=== PATIENT | male | born 1960 | race Caucasian/White ===

== ENCOUNTER → 2019-09-10 | Day surgery (SDC) | payer MEDICARE ==
[2019-09-05 14:40] VITALS: BMI 30.8
[~2019-09-10] MED LIST: LACTATED RINGERS 1,000 ML IV SCH; LIDOCAINE 1% (10MG/ML) FOR IV START INTRADERMA PRN; LIDOCAINE 1% INJ 10MG/ML (20 ML MDV) ONE; PROPOFOL 10 MG/ML 20 ML VIAL IV ONE
[2019-09-10 07:22] VITALS: TEMP 96.7
[2019-09-10 08:07] VITALS: RESP 17
--- NOTE | 2019-09-10 08:08 | P.PCN ---
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 The last was on weeks ago by . His having symptoms and dysphagia for the last 3-4 days and hence scheduled for repeat EGD with dilation today. PROCEDURE PERFORMED: Esophagogastroduodenoscopy with balloon dilation PREOPERATIVE DIAGNOSIS: History of caustic esophageal stricture/dysphagia IV sedation per anesthesia. PROCEDURE: After informed consent was obtained, the patient was brought into the endoscopy unit. IV sedation was administered by Anesthesia under continuous monitoring. Initially the Olympus GIF-140 video endoscope was inserted into the mouth. Esophagus intubated without any difficulty. It was gradually advanced into the stomach and duodenum and carefully examined. The bulb and the second part of the duodenum appeared normal. The scope at this time was withdrawn to the stomach, adequately insufflated with air, and upon careful examination, mucosa of the antrum, body, cardia and the fundus appeared normal. Small amount of retained food noted in the fundus of the stomach. The scope was then withdrawn into the esophagus. The GE junction was located at 39 cm from the incisors. This was an esophageal stricture noted at 28 cm from the incisors with scarring of the mid esophagus and the proximal esophagus. At this time, b alloon dilation was performed using 15-18 mm TTS balloon in a sequential fashion in the proximal as well as mid esophagus until mucosal oozing was identified. At this time the procedure was terminated and the patient tolerated the procedure well. IMPRESSION: 1. Scarring of the proximal and midesophagus with intermittent esophageal stricture at 28 cm from the incisors status post balloon dilation using 15-18 mm TTS balloon in a sequential fashion as described above 2. Retained food in the stomach suggestive of gastroparesis RECOMMENDATIONS: The findings of this examination were discussed with the patient as well as his family. He will remain on a clear liquid diet for lunch today and soft diet for dinner. He was advised to follow up as needed.
[2019-09-10 08:30] VITALS: BP 115/72; PULSE 60
== END ==
LOC: ORWHC2ENDO 07:13
PROVIDERS: ATTEND Internal Medicine Gastroenterology
DX: K22.2 Esophageal obstruction (principal); F17.210 Nicotine dependence, cigarettes, uncomplicated
CPT/HCPCS: 43249; J2001; J2704; C1726

== ENCOUNTER 2020-09-22 12:10 | Day surgery (SDC) | payer MEDICARE ==
[2020-09-20 09:10] VITALS: BMI 31.5
[~2020-09-22 12:10] MED LIST changes: -LIDOCAINE 1% INJ 10MG/ML (20 ML MDV) ONE; -PROPOFOL 10 MG/ML 20 ML VIAL IV ONE
[2020-09-22 13:13] VITALS: TEMP 98.2
[2020-09-22] MEDS ORDERED: LIDOCAINE 1% INJ 10MG/ML (20 ML MDV) ONE ×2 (13:19)
[2020-09-22] MEDS ORDERED: PROPOFOL 10 MG/ML 20 ML VIAL IV ONE ×2 (13:19)
--- NOTE | 2020-09-22 13:30 | P.PCN ---
Date of Procedure: 09/22/20 Procedure(s) Performed: BRIEF HISTORY: Patient is a 60-year-old, pleasant, white male scheduled for an upper endoscopy with dilation as a part of evaluation of caustic esophageal stricture diagnosed 13 years ago. He has upper endoscopy with dilation in the last one was [address] Mejia.. PROCEDURE PERFORMED: Esophagogastroduodenoscopy with balloon dilation. PREOPERATIVE DIAGNOSIS: History of caustic esophageal stricture/dysphagia. IV sedation per anesthesia. PROCEDURE: After informed consent was obtained, the patient was brought into the endoscopy unit. IV sedation was administered by Anesthesia under continuous monitoring. Initially the Olympus GIF-140 video endoscope was inserted into the mouth. Esophagus intubated without any difficulty. It was gradually advanced into the stomach and duodenum and carefully examined. The bulb and the second part of the duodenum appeared normal. The scope at this time was withdrawn to the stomach, adequately insufflated with air, and upon careful examination, mucosa of the antrum, body, cardia and the fundus appeared normal. The scope was then withdrawn into the esophagus. The GE junction was located at 39 cm from the incisors. It appeared regular with no erythema erosions or ulcerations. In the mid esophagus at 28 cm from the incisors there was a early esophageal stricture with mucosal erythema noted and this was dilated using 15-18 mm TTS balloon for 90 seconds. The proximal esophagus appeared normal and the patient tolerated the procedure well. IMPRESSION: 1. Mid esophageal stricture at 28 cm from the incisors. Erythema of the mucosa status post balloon dilation using 15-18 mm TTS balloon as described above. 2. Small hiatal hernia and irregular GE junction. RECOMMENDATIONS: The findings of this examination were discussed with the patient well as his family. He will remain on a clear liquid diet for lunch today. We'll plan a repeat upper endoscopy with dilation in 2-3 weeks..
[2020-09-22 14:13] VITALS: BP 116/70; PULSE 88; RESP 20
== END 2020-09-22 14:10 | disposition home or self-care (01) ==
LOC: ORWHC2ENDO 12:10
PROVIDERS: ATTEND Internal Medicine Gastroenterology
DX: K22.2 Esophageal obstruction (principal); K44.9 Diaphragmatic hernia without obstruction or gangrene; K21.9 Gastro-esophageal reflux disease without esophagitis; F17.200 Nicotine dependence, unspecified, uncomplicated; Z79.899 Other long term (current) drug therapy
CPT/HCPCS: 43249; J2001; J2704; C1726

== ENCOUNTER 2020-10-06 10:28 | Day surgery (SDC) | payer MEDICARE ==
[2020-10-04 14:00] VITALS: BMI 32.0
[2020-10-06 10:47] VITALS: RESP 16; TEMP 98.1
[2020-10-06] MEDS ORDERED: PROPOFOL 10 MG/ML 20 ML VIAL IV ONE (11:15)
[2020-10-06] MEDS ORDERED: MIDAZOLAM 2 MG/2 ML VIAL ONE (11:15)
[2020-10-06] MEDS ORDERED: LIDOCAINE 1% INJ 10MG/ML (20 ML MDV) ONE (11:15)
[2020-10-06] MEDS ORDERED: fentaNYL (PF) 50 MCG/ML 2 ML AMP ONE (11:15)
--- NOTE | 2020-10-06 11:43 | P.PCN ---
Date of Procedure: 10/06/20 Procedure(s) Performed: BRIEF HISTORY: Patient is a 60-year-old, pleasant, white male scheduled for an upper endoscopy as a part of evaluation of dysphagia to solids. He was diagnosed with esophageal caustic stricture 13 years ago and since then has been having upper endoscopy with dilation every 2 weeks. PROCEDURE PERFORMED: Esophagogastroduodenoscopy with dilation. PREOPERATIVE DIAGNOSIS: History of esophageal stricture. IV sedation per anesthesia. PROCEDURE: After informed consent was obtained, the patient was brought into the endoscopy unit. IV sedation was administered by Anesthesia under continuous monitoring. Initially the Olympus GIF-140 video endoscope was inserted into the mouth. Esophagus intubated without any difficulty. It was gradually advanced into the stomach and duodenum and carefully examined. The bulb and the second part of the duodenum appeared normal. The scope at this time was withdrawn to the stomach, adequately insufflated with air, and upon careful examination, mucosa of the antrum, body, cardia and the fundus appeared normal. The scope was then withdrawn into the esophagus. Small hiatal hernia noted. The GE junction was located at 39 cm from the incisors. The distal esophagus appeared normal. In the midesophagus at 28 cm from the incisors there was esophagus which are identified and proximal to this there was scarring of the mucosa with erythema noted which extended from 20-28 cm from the incisors. At this time using a 15- 17 mm balloon esophagus into was dilated for 60 seconds and some mucosal oozing was identified. Further dilation was not performed. The patient tolerated the procedure well. IMPRESSION: 1. Mid esophageal stricture at 28 cm from the incisors status post balloon dilation using 15-17 mm TTS balloon as described above. 2. Scarring of the mucosa in the mid esophagus with mucosal erythema noted from 20-28 cm from the incisors consistent with previous caustic into the. 3. Small hiatal hernia RECOMMENDATIONS: The findings of this examination were discussed with the patient as well as his family. He was advised to continue with a clear liquid diet today.he will have a repeat upper endoscopy with dilation in 2-3 weeks
[2020-10-06 12:13] VITALS: BP 129/78; PULSE 68
== END 2020-10-06 12:17 | disposition home or self-care (01) ==
LOC: ORWHC2ENDO 10:28
PROVIDERS: ATTEND Internal Medicine Gastroenterology
DX: K22.2 Esophageal obstruction (principal); K44.9 Diaphragmatic hernia without obstruction or gangrene; Z79.891 Long term (current) use of opiate analgesic; Z79.899 Other long term (current) drug therapy; F17.200 Nicotine dependence, unspecified, uncomplicated; K21.9 Gastro-esophageal reflux disease without esophagitis
CPT/HCPCS: 43249; J2250; J2001; J3010; J2704; C1726

== ENCOUNTER 2020-10-22 08:04 | Day surgery (SDC) | payer MEDICARE ==
[2020-10-19 08:46] VITALS: BMI 31.7
[~2020-10-22 08:04] MED LIST changes: -LIDOCAINE 1% (10MG/ML) FOR IV START INTRADERMA PRN
[2020-10-22 08:44] VITALS: RESP 16; TEMP 97.6
[2020-10-22] MEDS ORDERED: LIDOCAINE 1% (10MG/ML) FOR IV START INTRADERMA ONE (08:46)
[2020-10-22] MEDS ORDERED: PROPOFOL 10 MG/ML 20 ML VIAL IV ONE (08:50)
[2020-10-22] MEDS ORDERED: LIDOCAINE 1% INJ 10MG/ML (20 ML MDV) ONE (08:50)
--- NOTE | 2020-10-22 09:02 | P.PCN ---
Date of Procedure: 10/22/20 Procedure(s) Performed: BRIEF HISTORY: Patient is a 60-year-old, pleasant, white male scheduled for an upper endoscopy with dilation. 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 PROCEDURE PERFORMED: Esophagogastroduodenoscopy with dilation. PREOPERATIVE DIAGNOSIS: []. IV sedation per anesthesia. PROCEDURE: After informed consent was obtained, the patient was brought into the endoscopy unit. IV sedation was administered by Anesthesia under continuous monitoring. Initially the Olympus GIF-140 video endoscope was inserted into the mouth. Esophagus intubated without any difficulty. It was gradually advanced into the stomach and duodenum and carefully examined. The bulb and the second part of the duodenum appeared normal. The scope at this time was withdrawn to the stomach, adequately insufflated with air, and upon careful examination, mucosa of the antrum, body, cardia and the fundus appeared normal. The scope was then withdrawn into the esophagus. The GE junction was located at 39 cm from the incisors. Small sliding Hiatal hernia noted. The distal esophagus appeared normal. There was a stricture noted in the mid esophagus at 29 cm from the incisors with proximal mucosal scarring noted. At this time proceeded with balloon dilation using 15-18 mm TTS balloon in a sequential fashion for 90 seconds. Ther rest of the esophagus appeared normal and the patient tolerated the procedure well. IMPRESSION: 1. Mid esophageal stricture at 29 cm from the incisors with proximal scarring of the mucosa status post balloon dilation using 15-18 mm TTS balloon as describ ed above. 2. Small sliding hiatal hernia.. RECOMMENDATIONS: The findings of this examination were discussed with the patient as well as his family. He will continue on a clear liquid diet today. Repeat EGD as needed in 2-3 weeks..
[2020-10-22 09:33] VITALS: BP 130/86; PULSE 62
== END 2020-10-22 09:40 | disposition home or self-care (01) ==
LOC: ORWHC2ENDO 08:04
PROVIDERS: ATTEND Internal Medicine Gastroenterology
DX: K22.2 Esophageal obstruction (principal); K21.9 Gastro-esophageal reflux disease without esophagitis; K44.9 Diaphragmatic hernia without obstruction or gangrene; F17.200 Nicotine dependence, unspecified, uncomplicated; Z79.899 Other long term (current) drug therapy
CPT/HCPCS: 43249; J2001; J2704; C1726

== ENCOUNTER 2020-11-03 09:40 | Day surgery (SDC) | payer MEDICARE ==
[2020-10-29 11:19] VITALS: BMI 31.5
[2020-11-03] MEDS ORDERED: LIDOCAINE 1% (10MG/ML) FOR IV START INTRADERMA PRN (09:53)
[2020-11-03] MEDS ORDERED: LACTATED RINGERS 1,000 ML IV SCH (09:53)
[2020-11-03 09:56] VITALS: RESP 16; TEMP 97.2
[2020-11-03] MEDS ORDERED: PROPOFOL 10 MG/ML 20 ML VIAL IV ONE (10:30)
[2020-11-03] MEDS ORDERED: LIDOCAINE 1% INJ 10MG/ML (20 ML MDV) ONE (10:30)
--- NOTE | 2020-11-03 10:44 | P.PCN ---
Date of Procedure: 11/03/20 (Normal EGD) Procedure(s) Performed: BRIEF HISTORY: Patient is a 60-year-old, pleasant, white male scheduled for an upper endoscopy and esophageal dilation as a part of evaluation of mid esophageal stricture diagnosed 13 years ago related to caustic injury. He has been having periodic dilation every 2 weeks since then. Last one was performed in 2 weeks ago.. PROCEDURE PERFORMED: Esophagogastroduodenoscopy With dilation PREOPERATIVE DIAGNOSIS: Dysphagia related to esophageal stricture IV sedation per anesthesia. PROCEDURE: After informed consent was obtained, the patient was brought into the endoscopy unit. IV sedation was administered by Anesthesia under continuous monitoring. Initially the Olympus GIF-140 video endoscope was inserted into the mouth. Esophagus intubated without any difficulty. It was gradually advanced into the stomach and duodenum and carefully examined. The bulb and the second part of the duodenum appeared normal. The scope at this time was withdrawn to the stomach, adequately insufflated with air, and upon careful examination, mucosa of the antrum, body, cardia and the fundus appeared normal. There was a small amount of thick liquid food in the stomach there was aspirated. The scope was then withdrawn into the esophagus. The GE junction was located at 39 cm from the incisors. Mall hiatal hernia noted. The distal esophagus appeared normal. In the mid esophagus at 29 cm from the incisors there was a esophageal stricture identified with scarring of the mucosa proximal to the stricture and this was dilated using 15-17 mm TTS balloon in a sequential fashion for 90 seconds. Small mucosal tear was noted after the dilation. The proximal esophagus appea red normal and the patient tolerated the procedure well. IMPRESSION: 1. Mid esophageal stricture at 28 cm from the incisors status post dilation using 15-17 mm balloon 2. Small hiatal hernia.. RECOMMENDATIONS: The findings of this examination were discussed with the patient as well as his family. He was advised to remain on clear liquid diet today. Advance diet as tolerated for dinner. Repeat EGD with dilation in 2-3 weeks
[2020-11-03 11:03] VITALS: BP 127/84; PULSE 64
== END 2020-11-03 11:18 | disposition home or self-care (01) ==
LOC: ORWHC2ENDO 09:40
PROVIDERS: ATTEND Internal Medicine Gastroenterology
DX: K22.2 Esophageal obstruction (principal); K44.9 Diaphragmatic hernia without obstruction or gangrene; Z79.899 Other long term (current) drug therapy; F17.210 Nicotine dependence, cigarettes, uncomplicated; K21.9 Gastro-esophageal reflux disease without esophagitis; Z91.89 Other specified personal risk factors, not elsewhere classified
CPT/HCPCS: 43249; J2001; J2704; C1726

== ENCOUNTER 2020-11-17 09:37 | Day surgery (SDC) | payer MEDICARE ==
[2020-11-16 08:34] VITALS: BMI 31.2
[2020-11-17] MEDS ORDERED: LIDOCAINE 1% (10MG/ML) FOR IV START INTRADERMA ONE (10:15)
[2020-11-17 10:17] VITALS: RESP 16; TEMP 97.1
[2020-11-17] MEDS ORDERED: PROPOFOL 10 MG/ML 20 ML VIAL IV ONE (10:39)
[2020-11-17] MEDS ORDERED: LIDOCAINE 1% INJ 10MG/ML (20 ML MDV) ONE (10:39)
--- NOTE | 2020-11-17 10:51 | P.PCN ---
Date of Procedure: 11/17/20 Procedure(s) Performed: BRIEF HISTORY: Patient is a 58-year-old, pleasant, male scheduled for an upper endoscopy as a part of evaluation of dysphagia related to e caustic sophageal stricture diagnosed 13 years ago. He has EGD with periodic dilation every 2 weeks. PROCEDURE PERFORMED: Esophagogastroduodenoscopy with dilation. PREOPERATIVE DIAGNOSIS: Dysphagia secondary to caustic esophageal stricture. IV sedation per anesthesia. PROCEDURE: After informed consent was obtained, the patient was brought into the endoscopy unit. IV sedation was administered by Anesthesia under continuous monitoring. Initially the Olympus GIF-140 video endoscope was inserted into the mouth. Esophagus intubated without any difficulty. It was gradually advanced into the stomach and duodenum and carefully examined. The bulb and the second part of the duodenum appeared normal. The scope at this time was withdrawn to the stomach, adequately insufflated with air, and upon careful examination, mucosa of the antrum, body, cardia and the fundus appeared normal. The scope was then withdrawn into the esophagus. The GE junction was located at 39 cm from the incisors. In the mid esophagus at 28 cm from the incisors there was an esophageal stricture identified and proximal to this area there was erythematous mucosa related to previous caustic injury. At this time the procedure with balloon dilation today 2 mm balloon in a sequential fashion for 30 seconds. Rest of the esophagus appeared normal. There were no erosions or ulcerations seen and the patient tolerated the procedure well. IMPRESSION: 1. Mid esophageal stricture at 28 cm from the incisors status post balloon dilation using 15-18 mm TTS balloon. 2. Small hiatal hernia. RECOMMENDATIONS: The findings of this examination were discussed with the patient as well as his family. He'll remain on clear liquid diet for lunch today. He'll follow up for repeat EGD with dilation in 2-[address] Mejia..
[2020-11-17 11:10] VITALS: BP 136/84; PULSE 59
== END 2020-11-17 11:23 | disposition home or self-care (01) ==
LOC: ORWHC2ENDO 09:37
PROVIDERS: ATTEND Internal Medicine Gastroenterology
DX: K22.2 Esophageal obstruction (principal); K44.9 Diaphragmatic hernia without obstruction or gangrene; F17.210 Nicotine dependence, cigarettes, uncomplicated; K21.9 Gastro-esophageal reflux disease without esophagitis; Z79.899 Other long term (current) drug therapy; Z98.890 Other specified postprocedural states; E66.9 Obesity, unspecified; Z68.31 Body mass index [BMI] 31.0-31.9, adult; F19.11 Other psychoactive substance abuse, in remission
CPT/HCPCS: 43249; J2001; J2704; C1726